=== PATIENT | female | born 1990 | race Caucasian/White ===

== ENCOUNTER 2018-10-31 17:04 | Outpatient (CLI) | END 2018-10-31 18:50 | disposition home or self-care (01) ==

== ENCOUNTER 2018-11-07 12:33 | Outpatient (CLI) | END 2018-11-07 14:10 | disposition home or self-care (01) ==

== ENCOUNTER 2019-01-30 18:19 | Outpatient (CLI) | payer BC ==
[~2019-01-30] VITALS: Ht 167.6 cm; Wt 79.7 kg
[2019-01-30 19:16] VITALS: Ht 167.6 cm; Wt 79.7 kg
[2019-01-30 19:17] VITALS: BP 112/63; PULSE 72; RESP 17
--- NOTE | 2019-01-30 21:12 | PN ---
Triage Information Date/Time January 30, 2019 Reason for visit: Uterine contractions Weeks of Gestation 38w 2d /Para 2/1 Diabetes: none Hypertention: none Additional information Pt has been having back pain and cramping today. No leaking or bleeding. Pt's 1st baby delivered in 12 hours from when she broke her water to delivery with significant contractions for the last 4 hours only. PMHx: none. PSHx: none. NKDA. Objective Vital Signs Date Temp Pulse Resp B/P (MAP) Pulse Ox O2 O2 Flow FiO2 Time Delivery Rate 01/30/19 98.0 72 17 112/63 Room Air 19:17 (79) Heart Rate: 120's Heart Rate Comments Accels to 160 bpm. No decels. Contractions: >10 Minutes Apart Exam 60%/1/-3. Results/Medications Results 24 hrs Laboratory Tests Test 01/30/19 19:00 Urine Color YELLOW Urine Clarity SLIGHTLY CLOUDY A Urine pH 6.0 Urine Specific Elim 1.025 Urine Ketones NEGATIVE Urine Nitrite NEGATIVE Urine Bilirubin NEGATIVE Urine Urobilinogen NEGATIVE Urine Leukocyte Esterase 1+ H Urine Microscopic RBC 1 Urine Microscopic WBC 26 H Urine Squamous Epithelial Cells MODERATE Urine Bacteria FEW A Urine Mucus FEW A Urine Hemoglobin NEGATIVE Urine Glucose NEGATIVE Urine Total Protein NEGATIVE Imaging Results BPP 8/8 with an HUAN of 12.7 cm. VTX. Disposition: Discharge Assessment/Plan A: IUP at 38w 2d. False labor. P: D/C home with labor precautions. Pt does live [place] few blocks from the hospital. BELLA ANDREWS MD Jan 30, 2019 21:12
--- NOTE | 2019-01-31 01:48 | TRIAGE ---
OB Triage Datetime Report Generated by CPN: 01/31/2019 01:47 Datetime: 01/30/2019 21:05 Stage of : OB Triage Datetime: 01/30/2019 20:31 Vaginal Exam Dilatation (cms): 1.0 Effacement (%): 60 Station: -3 Exam By: gstratton rn Datetime: 01/30/2019 19:00 Labor Evaluation Frequency: X 1 Monitor Mode: External Duration (sec)2399: 60 Quality: Mild Resting Tone [place]: Relaxed Heart Rate FHR Baseline Rate: 130 Monitor Mode: External US Variability: Moderate 6-25 bpm Accelerations: 15X15 Decelerations: None Category: Category I Pain Assessment Pain Scale: 0 Pain Presence: None/Denies Pain Type: N/A Membrane Status: Intact Datetime: 01/30/2019 18:45 Vaginal Exam Dilatation (cms): 1.0 Effacement (%): 50 Station: -3 Datetime: 01/30/2019 18:34 Time of Arrival: 01/30/2019 18:11 EGA: 38.3 Arrived By: Ambulatory Arrived From: Home Chief Complaint: CRAMPING, BACK PAIN, VAG PRESSURE Movement: Present Contractions: Irregular Patient Complaints: Cramping; Back Pain Time Provider Notified: 01/31/2019 18:59 Provider Notified: SUHAS Initial Plan: CEFM Datetime: 01/30/2019 18:20 Maternal Assessment Level of Consciousness: Fully Conscious DTR's/Clonus: DTRs 2+; No Clonus Headache: Denies Blurred Vision: No Respiratory Effort: Unlabored; Regular Rhythm; Equal Expansion Breath Sounds, Left: Clear and Equal Breath Sounds, Right: Clear and Equal Nausea/Vomiting: Denies RUQ Epigastric Pain: Denies Facial Edema: None Fall Risk Assessment History of Falling: (0) No Secondary Diagnosis: (0) No Ambulatory Aid: (0) Bedrest/Nurse Assist IV Therapy: (0) No Gait: (0) Normal/Bedrest/Immobile Mental Status: (0) Oriented to Own Ability Fall Score: 0 Fall Risk Score Definition: No Risk: No action required Datetime: 11/07/2018 14:00 Stage of : OB Triage Maternal Assessment Level of Consciousness: Fully Conscious DTR's/Clonus: DTRs 1+ Headache: Denies Breath Sounds, Left: Clear and Equal Breath Sounds, Right: Clear and Equal Nausea/Vomiting: Denies RUQ Epigastric Pain: Denies Labor Evaluation Frequency: NONE Monitor Mode: External Resting Tone [place]: Relaxed Heart Rate FHR Baseline Rate: 140 Monitor Mode: External US Variability: Moderate 6-25 bpm Accelerations: 10X10 Decelerations: None Category: Category I Pain Presence: None/Denies Pain Type: N/A Membrane Status: Intact Datetime: 11/07/2018 12:40 Fall Score: 0 Fall Risk Score Definition: No Risk: No action required Datetime: 11/07/2018 12:23 EGA: 26.3 Datetime: 10/31/2018 17:16 Fall Score: 0 Fall Risk Score Definition: No Risk: No action required Datetime: 10/31/2018 17:15 EGA: 25.3
== END 2019-01-30 21:04 | disposition home or self-care (01) ==
LOC: OBT 18:19 → L-D 18:20 → OBT 21:04
PROVIDERS: ATTEND Obstetrics & Gynecology
DX: O47.1 False labor at or after 37 completed weeks of gestation (principal); Z3A.38 38 weeks gestation of pregnancy
CPT/HCPCS: 76818; 81001; Z7500; G0463

== ENCOUNTER 2019-02-09 21:00 | Inpatient (IN) | payer BC ==
[~2019-02-09] VITALS: Ht 165.1 cm; Wt 71.0 kg
[2019-02-10] MEDS ORDERED: LACTATED RINGER'S 1,000 ML IV PRN (00:59)
[2019-02-10] MEDS ORDERED: OXYTOCIN 30 UNITS/LR 500 ML IV SCH ×2 (01:00)
[2019-02-10] MEDS ORDERED: BUTORPHANOL 2 MG INJ IV PRN (01:00)
[2019-02-10] MEDS ORDERED: LIDOCAINE 1% (MPF) 30 ML INJ INJ PRN (01:00)
[2019-02-10] MEDS ORDERED: BUTORPHANOL 1 MG INJ IV PRN (01:00)
[2019-02-10] MEDS ORDERED: METHYLERGONOVINE 0.2 MG INJ IM PRN ×2 (01:00→21:00)
[2019-02-10] MEDS ORDERED: MISOPROSTOL 200 MCG TAB PR PRN ×2 (01:00→21:00)
[2019-02-10] MEDS ORDERED: IBUPROFEN 600 MG TAB PO PRN (01:00)
[2019-02-10] MEDS ORDERED: OXYTOCIN 30 UNITS/LR 500 ML IV PRN ×2 (01:00→21:00)
[2019-02-10] MEDS ORDERED: MINERAL OIL LIGHT 10 ML VIAL TOP ONE (01:00)
[2019-02-10] MEDS ORDERED: CARBOPROST 250 MCG INJ IM PRN ×2 (01:00→21:00)
[2019-02-10] MEDS: LACTATED RINGER'S 1,000 ML IV SCH ×4 (02:02→17:21)
--- NOTE | 2019-02-10 03:06 | HP ---
Date/Time of Note Date/Time of Note DATE: 02/10/19 TIME: 03:03 OB - History Hx of Present Free Text/Dictation 29 y.o at 39w for IOL found to be in early labor her own. membrane intact ,VE 1-2 /80/-2 EFM CAT I admitted for expectant management. Chief Complaint: uc's Estimated Due Date: Feb 10, 2019 : 2 Para: 1 Spontaneous : 0 Therapeutic : 0 Care: Good Care Ultrasounds: Normal mid trimester US Obstetrical Complications: None Medical Complications: None Past Family/Social History * Past Medical, Surgical, Family and Obstetric Histories reviewed from chart. Blood Type: B+ Rubella: immune RPR/VDRL: Negative GBS Status: Negative HBsAG: Negative OB Admission Exam Physical Exam HEENT: WNL Heart: Rhythm Normal Lungs: Clear, Equal Abdomen: WNL Extremities: Normal Reflexes: Normal Cervical Dilatation: 2cm Effacement: 75% Station: -2 Membranes: Intact Amniotic Fluid: Unevaluable Heart Rate: 140's Accelerations: Accelerations Present Decelerations: No Decelerations Varibility: Moderate Contractions on Admission: < 5 Minutes Apart Intensity: Mild OB Assessment/Plan Other Assessment: IUP 39 w in labor Plan: Expectant Management CLYDE DAI MD Feb 10, 2019 03:06
[2019-02-10 06:00] VITALS: Ht 165.1 cm; Wt 71.0 kg
--- NOTE | 2019-02-10 14:28 | PREAC ---
Date/Time of Note Date/Time of Note DATE: 02/10/19 TIME: 14:28 Anesthesia Eval and Record Evaluation Time Pre-Procedure Interview DATE: 02/10/19 TIME: 14:28 Age 29 Sex female NPO: 8 hrs Preoperative diagnosis labor epidural Planned procedure labor epidural Past Medical History Past Medical History: None Surgery & Anesthesia Issues No known issue Meds Anticoagulation: No Beta Moises within 24 hr: No Reason Beta Moises not given: Pt. not on B-Moises No Active Prescriptions or Reported Meds Current Medications Lactated Ringer's 1,000 ml @ 125 mls/hr Q8H IV Last administered on 02/10/19at 11:04; Admin Dose 125 MLS/HR; Start 02/10/19 at 00:59 Butorphanol Tartrate (Stadol) 1 mg Q2H PRN IV .PAIN; Start 02/10/19 at 01:00 Butorphanol Tartrate (Stadol) 2 mg Q2H PRN IV .PAIN; Start 02/10/19 at 01:00 Lidocaine (Xylocaine 1% (Mpf)) 30 ml ONCE PRN INJ .EPISIOTOMY; Start 02/10/19 at 01:00 Oxytocin/Lactated Ringer's 500 ml @ 500 mls/hr ONCE POST IV ; Start 02/10/19 at 01:00 Oxytocin/Lactated Ringer's 500 ml @ 125 mls/hr POST IV ; Start 02/10/19 at 01:00 Ibuprofen (Motrin) 600 mg ONCE PRN PO .PAIN 1-5; Start 02/10/19 at 01:00 Lactated Ringer's 1,000 ml @ 2,000 mls/hr Q30M PRN IV .ANESTHESIA; Start 02/10/19 at 00:59 Oxytocin/Lactated Ringer's 500 ml @ 0 mls/hr ONCE PRN IV .VAGINAL BLEEDING; Start 02/10/19 at 01:00 Methylergonovine Maleate (Methergine) 0.2 mg ONCE PRN IM .VAGINAL BLEEDING; Start 02/10/19 at 01:00 Carboprost Tromethamine (Hemabate) 250 mcg ONCE PRN IM .VAGINAL BLEEDING; Start 02/10/19 at 01:00 Misoprostol (Cytotec) 1,000 mcg ONCE PRN AR .VAGINAL BLEEDING; Start 02/10/19 at 01:00 Meds reviewed: Yes Allergies Coded Allergies: No Known Allergy (Unverified , 02/10/19) Allergies Reviewed: Yes Labs/Studies Labs Reviewed: Reviewed by anesthesiologist Result Diagram: 02/10/19 0200 Laboratory Tests 02/10/19 02:00 Blood Bank Test 02/10/19 02:00 Antibody Screen NEGATIVE Blood Type B POSITIVE Rh Immune Globulin Candidate NO test: Positive Pre-procedure Exam Airway: Adequate mouth opening, Adequate thyromental dist Mallampati: Mallampati III Teeth: Normal Lung: Normal Heart: Normal ASA Physical Status ASA physical status: 2 Emergency: None Planned Anesthetic Neuraxial: Epidural Planned Pain Management Epidural, Parenteral pain med Pre-operative Attestations Prior to commencing anesthesia and surgery, the patient was re-evaluated, there was verification of: *The patient's identity *The results of appropriate recent lab work and preoperative vital signs *The above evaluation not changing prior to induction *Anesthetic plan, risk benefits, alternative and complications discussed with patient/family; questions answered; patient/family understands, accepts and wishes to proceed. BABAK ALMONTE MD Feb 10, 2019 14:28
[2019-02-10] MEDS ORDERED: ZOLPIDEM 5 MG TAB PO PRN ×2 (14:30→21:00)
[2019-02-10] MEDS ORDERED: NALOXONE (0.4 MG/ML) INJ IV PRN (14:30)
[2019-02-10] MEDS ORDERED: DIPHENHYDRAMINE 50 MG INJ IV PRN (14:30)
[2019-02-10] MEDS ORDERED: FENTAnyl 2MCG/ML-ROPIV 0.2% 100 ML BAG EPI SCH (14:30)
[2019-02-10] MEDS ORDERED: KETOROLAC 30 MG INJ IV PRN (14:30)
[2019-02-10] MEDS ORDERED: ONDANSETRON 4 MG INJ IV PRN (14:30)
[2019-02-10] MEDS ORDERED: HYDROmorphONE 0.5 MG/0.5 ML SYG IV PRN ×2 (14:30)
--- NOTE | 2019-02-10 18:46 | LDN ---
Date/Time of Note Date/Time of Note DATE: 02/10/19 TIME: 18:44 Delivery Summary of normal male Weeks of Gestation 40w Placenta Delivered: Spontaneously, Intact & Complete Meconium: none Episiotomy: No Perineal laceration: 1 Laceration repair: 000 ch gut Anesthesia type: Epidural Estimated blood loss: 100 Sponge & Needle done & correct: Yes All needle counts correct: Yes Any foreign bodies felt in the: No Infant Delivery Information Sex Sex: male Apgars 1 Minute: 9 5 Minute: 9 Suctioning Nose & mouth suctioned at karma: Yes Delee suction performed: Yes Umbilical Cord Umbilical cord with: 3 Vessels Cord presentations: no nuchal cord Cord Blood was obtained: Yes Mother & Baby Disposition Disposition Mom & Baby to Maternity; Good: Yes Mom transferred to: Other Baby to NICU: No () CLYDE DAI MD Feb 10, 2019 18:46
[2019-02-10 20:30] VITALS: BP 114/73; PULSE 84; RESP 18
[2019-02-10] MEDS ORDERED: BENZOCAINE 20% 56 ML SPRAY TOP PRN (21:00)
[2019-02-10] MEDS ORDERED: OXYCODONE/ASPIRIN (4.88/325) TAB PO PRN ×2 (21:00)
[2019-02-10] MEDS ORDERED: LANOLIN HPA 1 PKT TOP PRN (21:00)
[2019-02-10] MEDS: SENNA/DOCUSATE NA (8.6MG/50MG) TAB PO SCH (21:16)
--- NOTE | 2019-02-10 21:22 | PAC ---
Date/Time of Note Date/Time of Note DATE: 02/10/19 TIME: 21:21 Post-Anesthesia Notes Post-Anesthesia Note Activity: WNL Respiratory function: WNL Cardiovascular function: WNL Mental status: Baseline Pain reasonably controlled: Yes Hydration appropriate: Yes Nausea/Vomiting absent: Yes BABAK ALMONTE MD Feb 10, 2019 21:21
[2019-02-10] MEDS: WITCH HAZEL/GLYCERIN PAD PR PRN (23:27)
[2019-02-10] MEDS: IBUPROFEN 600 MG TAB PO SCH (23:31)
[2019-02-11] VITALS: BP 100/72; PULSE 81; RESP 16
[2019-02-11 04:10] VITALS: BP 98/58; PULSE 80; RESP 18
[2019-02-11] MEDS: IBUPROFEN 600 MG TAB PO SCH ×4 (06:14→23:41)
[2019-02-11 08:05] VITALS: BP 107/67; PULSE 76; RESP 20
[2019-02-11] MEDS: SENNA/DOCUSATE NA (8.6MG/50MG) TAB PO SCH ×2 (09:18→21:06)
--- NOTE | 2019-02-11 15:17 | QN ---
Documentation Comment no c/o vss afebrile fundus firm lochia min calf neg for tenderness A s/p #1 P discharge home in am CLYDE DAI MD Feb 11, 2019 15:17
--- NOTE | 2019-02-11 15:18 | PD.PPDC ---
PHYSICIAN EXTENDER Discharge Instruction Diagnosis [id number] Final Diagnosis: Dqsgi9h s/p Condition [id number] Patient Condition: Bzoew5u Stable Diet Uckuz1Wc Diet: Smese9v Resume Regular Diet Activity/Restrictions [id number] Activity: Hkweo1d May Shower Eieuh5Ok Restrictions: Xvroo1t No Lifting No Sexual Activity Nothing in the Vagina No Stigler No Tampons, douche Follow-up Follow-up with Physician: 6, Week/Weeks Return to clinic for Fceoz4Xy CHANGE MANAGEMENT FACILITATOR Instructions: Pcwgx1q Fever greater than 101 Chills Worsening abdominal pain Excessive Vaginal Bleeding More than 2 pads per hour Unable to tolerate diet [id number] OB Instructions: Wngnx8e Breast Tenderness Depression Blurried Vision Headache CLYDE DAI MD Feb 11, 2019 15:18
[2019-02-11 16:20] VITALS: BP 107/65; PULSE 78; RESP 20
[2019-02-11 20:00] VITALS: BP 115/89; PULSE 81; RESP 20
[2019-02-12 04:00] VITALS: BP 126/79; RESP 20
[2019-02-12] MEDS: IBUPROFEN 600 MG TAB PO SCH ×2 (06:16→12:19)
[2019-02-12 07:45] VITALS: BP 116/68; PULSE 75; RESP 20
[2019-02-12] MEDS ORDERED: DIPHTH/TET/ACEL PERTUSS (ADULT) 0.5 ML VIAL IM* ONE (09:00)
[2019-02-12] MEDS: SENNA/DOCUSATE NA (8.6MG/50MG) TAB PO SCH (09:45)
[2019-02-12] MEDS: WITCH HAZEL/GLYCERIN PAD PR PRN (09:45)
--- NOTE | 2019-02-12 16:57 | DS ---
Date/Time of Note Date/Time of Note DATE: 02/12/19 TIME: 15:09 Obstetrical Discharge Record Final Diagnosis Final Diagnosis: Term delivered Vaginal Delivery Obstetrical Delivery: Spontaneous, Laceration, Repaired Condition on Discharge Physical Assessment Last Vitals: vss abebrile 6 Voiding: Yes Bowel Movement: Yes Breast: Soft, non-tender, Filling Fundus: Firm Abdomen and Incision: n/a Episiotomy: n/a Calf Tenderness: No Patient Condition: Stable CLYDE DAI MD Feb 12, 2019 16:57
--- NOTE | 2019-02-20 11:23 | DELSUM ---
Delivery Summary A-C Datetime Report Generated by CPN: 02/20/2019 11:20 DELIVERY PERSONNEL Ground Support Equipment Assembler: Orel, Zofia MATERNAL INFORMATION Delivery Anesthesia: Epidural Medications in Delivery: pitocin 30 units in LR 500 ml Delivery QBL (ml): 100 Placenta Cultured: No Maternal Complications: None LABOR SUMMARY EDC: 02/10/2019 00:00 No. Babies in Womb: 1 Attempted: No Labor Anesthesia: Epidural LABOR INFORMATION Reason for Induction: Not Applicable Onset of Labor: 02/09/2019 21:00 Complete Dilatation: 02/10/2019 17:22 Oxytocin: N/A Group B Beta Strep: Negative Antibiotics # of Doses: none Steroids Given: None Reason Steroids Not Administered: Not Applicable MEMBRANES Membranes Rupture Method: Artificial Rupture of Membranes: 02/10/2019 13:58 Length of Rupture (hr): 3.97 Amniotic Fluid Color: Clear Amniotic Fluid Amount: Small Amniotic Fluid Odor: None STAGES OF LABOR Stage 1 hr: 20 Stage 1 min: 22 Stage 2 hr: 0 Stage 2 min: 34 Stage 3 hr: 0 Stage 3 min: 4 Total Time in Labor hr: 21 Total Time in Labor min: 0 VAGINAL DELIVERY Episiotomy: None Laceration Extension: First Degree Laceration Type: Perineal Laceration Repair: Yes Initial Vag Sponge Count: 10 Final Vag Sponge Count: 10 Initial Vag Sharps Count: 1 Final Vag Sharps Count: 2 Sponge Count Correct: Yes Sharps Count Correct: Yes Count Comment: 1 suture added BABY A INFORMATION Infant Delivery Date/Time: 02/10/2019 17:56 Method of Delivery: Vaginal Born in Route : No : N/A Forceps: N/A Vacuum Extraction: N/A Shoulder Dystocia : N/A SHOULDER DYSTOCIA BABY A Infant Delivery Date/Time: 02/10/2019 17:56 PRESENTATION/POSITION BABY A Presentation: Compound Cephalic Presentation: Vertex Vertex Position: Left Occipital Anterior Breech Presentation: N/A PLACENTA INFORMATION BABY A Placenta Delivery Time : 02/10/2019 18:00 Placenta Method of Delivery: Spontaneous Placenta Status: Delivered SCORES BABY A Heart Rate 1 min: >100 bpm Resp Effort 1 min: Good Cry Reflex Irritability 1 min: Cough/Sneeze/Pulls Away Muscle Tone 1 min: Active Motion Color 1 min: Body [place], Extremit Blue Resuscitation Effort 1 min: Tactile Stimulation SCORE 1 MIN: 9 Heart Rate 5 min: >100 bpm Resp Effort 5 min: Good Cry Reflex Irritability 5 min: Cough/Sneeze/Pulls Away Muscle Tone 5 min: Active Motion Color 5 min: Body [place], Extremit Blue Resuscitation Effort 5 min: Tactile Stimulation SCORE 5 MIN: 9 INFORMATION BABY A Gestational Age at Delivery: 40.0 Gestational Status: Full Term- 39- 40.6 Weeks Infant Outcome : Liveborn Condition : Stable Sex: Male IDENTIFICATION/MEDS BABY A ID Band Number: [id number] ID Band Location: Right Leg; Left Arm Sensor Applied: Yes Sensor Number: [id number] Sensor Location : Cord Clamp Vitamin K Given : Not Given Erythromycin Given: Not Given WEIGHT/LENGTH BABY A Infant Birthweight (gm): 4015 Weight (lb): 8 Weight (oz): 14 Infant Length (in): 20.50 Length (cm): 52.07 CORD INFORMATION BABY A No. Cord Vessels: 3 Nuchal Cord : N/A Cord Blood Taken: Yes Infant Suction: Mouth; Nose ASSESSMENT BABY A Infant Complications: None Physical Findings at Delivery: Molding of the Head Respirations: Appears Normal Buckle Stapler/ALS Called : No Care By: DAKOTA Martinez Transferred To: Remains with Mother
== END 2019-02-12 15:50 | disposition home or self-care (01) | DRG 807 ==
LOC: L-D 23:20 → PP1 02-10 20:25
PROVIDERS: ADMIT Obstetrics & Gynecology; ATTEND Obstetrics & Gynecology
PROC: 10E0XZZ Delivery of Products of Conception, External Approach (ICD-10-PCS; principal; 2019-02-10)
PROC: 0HQ9XZZ Repair Perineum Skin, External Approach (ICD-10-PCS; 2019-02-10)
DX: O70.9 Perineal laceration during delivery, unspecified (principal); Z37.0 Single live birth; Z3A.40 40 weeks gestation of pregnancy
CPT/HCPCS: 62319; 85025; 85610; 85730; 86592; 86850; 86900; 86901; 87340; J2590; J3010; J7120